=== PATIENT | female | born 2000 | race Caucasian/White ===

== ENCOUNTER 2020-06-16 07:57 | Outpatient (REF) | payer OTHER, SELFPAY ==
[2020-06-16 11:33] LABS: Estimated Average Glucose 103 mg/dL; Hemoglobin A1c % 5.2 %
[2020-06-16 11:49] LABS: Alanine Aminotransferase 10 U/L (0-31); Albumin Level 3.9 g/dL (3.5-5.0); Alkaline Phosphatase 58 U/L (39-117); Anion Gap 14 (12-20); Aspartate Amino Transferase 16 U/L (5-31); Bilirubin Total 0.4 mg/dL (0.0-1.0); Blood Urea Nitrogen 8 mg/dL (9-16); Calcium 9.1 mg/dL (8.4-10.2); Carbon Dioxide 24 mmol/L (22-29); Chloride 104 mmol/L (96-108); Estimated Glomerular Filt Rate > 60; Glucose Fasting 81 mg/dL (60-99); Potassium 4.1 mmol/l (3.3-5.1); Sodium 138 mmol/L (135-145); Total Protein 6.9 g/dL (6.5-8.0)
[2020-06-16 12:03] LABS: Free T4 (Free Thyroxine) 0.95 ng/dL (0.71-1.85); Thyroid Stimulating Hormone 1.45 uIU/mL (0.32-4.0)
[2020-06-17 06:17] LABS: Insulin Level Total 7.1 uIU/mL; Thyroglobulin Antibodies <1 IU/mL (< or = 1); Thyroid Peroxidase Antibodies 1 IU/mL (<9)
[2020-06-17 08:12] LABS: Triiodothyronine T3 Free 3.1 pg/mL (2.3-4.2)
== END 2020-06-16 07:58 | disposition home or self-care (01) ==
LOC: HO.HMGCLDS 07:57
PROVIDERS: PCP Pediatrics; Visit Provider Nurse Practitioner Family
DX: R63.5 Abnormal weight gain (principal); E28.2 Polycystic ovarian syndrome; E03.8 Other specified hypothyroidism
CPT/HCPCS: 36415; 80053; 82947; 83036; 83525; 84439; 84443; 84481; 86376; 86800

== ENCOUNTER 2022-04-09 08:14 | Outpatient (REF) | payer OTHER, SELFPAY ==
[2022-04-09 12:23] LABS: Free T4 (Free Thyroxine) 0.97 ng/dL (0.71-1.85); Thyroid Stimulating Hormone 1.44 uIU/mL (0.32-4.0)
[2022-04-10 09:02] LABS: DHEA Sulfate 315 mcg/dL (14-349); Triiodothyronine T3 Free 4.1 pg/mL (2.3-4.2)
== END 2022-04-09 08:15 | disposition home or self-care (01) ==
LOC: HO.HMGCX 08:14
PROVIDERS: Visit Provider Nurse Practitioner Family
DX: E28.2 Polycystic ovarian syndrome (principal); E03.8 Other specified hypothyroidism
CPT/HCPCS: 36415; 82627; 84439; 84443; 84481